=== PATIENT | male | born 1965 | race Caucasian/White ===

== ENCOUNTER → 2021-05-16 | Outpatient (CLI) | payer BC ==
[2021-05-16 12:20] LABS: PROSTATIC SPECIFIC AG MONITOR 1.12 NG/ML (< 4.00); THYROID STIMULATING HORMONE 1.48 uIU/ML (0.358-3.740)
== END ==
LOC: M WUC 10:12
PROVIDERS: ATTEND Urology
DX: E29.1 Testicular hypofunction (principal)

== ENCOUNTER → 2022-03-09 | Outpatient (CLI) | payer OTHER | LOC: M WHC 10:54 | PROVIDERS: ATTEND Urology | DX: R94.4 Abnormal results of kidney function studies (principal); R30.0 Dysuria ==

== ENCOUNTER → 2022-07-14 | Outpatient (REF) | payer OTHER | LOC: M LAB REF 12:10 | PROVIDERS: ATTEND Podiatrist Foot & Ankle Surgery | DX: M85.671 Other cyst of bone, right ankle and foot (principal) ==